=== PATIENT | male | born 1980 | race African-American/Black ===

== ENCOUNTER 2018-12-27 18:29 | Emergency (ER) | payer BC ==
[~2018-12-27] VITALS: Ht 180.3 cm; Wt 90.7 kg
[~2018-12-27 18:29] MED LIST: FISH OIL 1,001000 M2 PO; HYDROCODONE-AP1 EAC6 PO; NAPROSYN500 MG PO; NORCO 5-325 TA1 EACH PO; UNICOMPLEX M TA1 TA1 PO; ZANAFLEX4 MG PO
[2018-12-27 19:02] LABS: BASOPHILS 1.5 % (0.0-2.0); EOSINOPHILS 1.7 % (0.0-3.0); HEMATOCRIT 42.3 % (42.0-52.0); HEMOGLOBIN 13.9 gm/dL (14.0-18.0); MCH 30.9 pg (26.0-34.0); MCHC 32.9 g/dL (28.0-37.0); MCV 93.8 fL (80.0-100.0); PLATELET COUNT 236 thou/uL (150-400); POLYS 46.8 % (36.0-66.0); RBC 4.51 mil/uL (4.50-6.00); RDW 13.2 % (10.5-14.5); WBC 6.5 thou/uL (4.0-11.0)
[2018-12-27 19:05] LABS: ANION GAP 12 mmol/L (7-16); BUN 27 mg/dL (7-18); CALCIUM 9.4 mg/dL (8.5-10.1); CHLORIDE 103 mmol/L (98-107); CO2 26 mmol/L (21-32); CREATININE 1.1 mg/dL (0.7-1.3); GLUCOSE 102 mg/dL (74-106); POTASSIUM 3.8 mmol/L (3.5-5.1); SODIUM 141 mmol/L (136-145)
[2018-12-27] MEDS ORDERED: CREON DR 36,001 EACH PO (19:10)
[2018-12-27 19:15] LABS: ALBUMIN 4.1 g/dL (3.4-5.0); LIPASE 153 U/L (73-393); SGOT 26 U/L (15-37); SGPT 43 U/L (30-65); TOTAL BILIRUBIN 0.7 mg/dL (<0.1-1.0); TOTAL PROTEIN 7.7 g/dL (6.4-8.2); TROPONIN-I <0.06 ng/mL (<0.06)
[2018-12-27] MEDS ORDERED: NITROSTAT0.4 M1 SUBLING (20:56)
[2018-12-27 21:15] VITALS: BP 109/63
--- NOTE | 2018-12-30 13:13 | EKG ---
[address] [address] [address] [place] [address] ELECTROCARDIOGRAM REPORT Name: RAKEL WISEMAN Room #: DEP Red#: [id number] Admission: 12/27/18 Attend Phys: Discharge: 12/27/18 Date of : 76 Report #: [id number] THIS REPORT FOR: //name// [facility] ED Test Date: 2018-12-27 Test Time: 18:33:16 Pat Name: RAKEL WISEMAN Department: Room: Gender: Biology Department Chair: [place] : 1980 Requested By: Angelita Hahn Order Number: [id number] MD: Asim Lawson Measurements Intervals [place] Rate: 74 P: 71 IN: 142 QRS: 27 QRSD: 102 T: 40 QT: 361 QTc: 401 Interpretive Statements Sinus rhythm Abnormal R-wave progression, early transition Baseline wander in lead(s) II,III,aVF No previous ECG available for comparison Electronically Signed On 12-30-2018 13:13:01 CDT by Asim Lawson [email or web address] <ELECTRONICALLY SIGNED> By: Asim Lawson MD, [facility] 12/30/18 1313 1833 32 Asim Lawson MD, FACC /EPI
== END 2018-12-27 21:20 | disposition home or self-care (01) ==
LOC: ER 18:29
PROVIDERS: Physician Assistant
DX: K22.4 Dyskinesia of esophagus (principal); R07.9 Chest pain, unspecified; K21.9 Gastro-esophageal reflux disease without esophagitis; I10 Essential (primary) hypertension; M54.2 Cervicalgia; M54.9 Dorsalgia, unspecified; G89.29 Other chronic pain; Z98.52 Vasectomy status